=== PATIENT | male | born 1950 | race African-American/Black ===

== ENCOUNTER 2020-09-03 18:32 | Inpatient (IN) | payer MEDICARE, OTHER ==
[~2020-09-03 18:32] MED LIST: ALLOPURINOL300 MG PO; AZITHROMYCIN250 MG PO; CARDURA2 MG PO; CATAPRES0.1 MG PO; COLACE100 MG PO; COZAAR100 MG PO; FIBER500 MG PO; HCTZ25 MG PO; MAG-OXIDE 400M400 MG PO; NORVASC5 MG PO; PERCOCET 5-3251 EACH PO; POLY-IRON150 MG PO; SYNTHROID25 MCG PO; TOPROL XL100 MG PO; VITAMIN D3125 MC2 PO
[2020-09-03 19:34] LABS: BASOPHIL 0.3 % (0-2); EOSINOPHIL 0.5 % (0-7); HCT 39.6 % (42.0-52.0); HGB 12.5 g/dl (13.2-18.0); LYMPHOCYTE 19.8 % (15-48); MCH 28.7 pg (25.0-31.0); MCHC 31.6 g/dL (32.0-36.0); MCV 90.8 fL (78.0-100.0); MONOCYTE 5.1 % (0-12); MPV 10.9 fL (6.0-9.5); NRBC 0; PLT 187 K/uL (150-400); RBC 4.36 M/uL (4.70-6.00); RDW 14.2 % (11.5-14.0); WBC 6.5 K/uL (4.0-10.5)
[2020-09-03 19:36] LABS: BILIRUBIN 1+ mg/dL (NEGATIVE); BLOOD NEGATIVE Ery/uL (NEGATIVE); CLARITY CLEAR (CLEAR); COLOR YELLOW (YELLOW); GLUCOSE (U) NORMAL (NORMAL); LEUKOCYTES NEGATIVE Leu/uL (NEGATIVE); NITRITE NEGATIVE (NEGATIVE); PROTEIN 2+ mg/dL (NEGATIVE); SPECIFIC GRAVITY >=1.030 (1.001-1.030); UROBILINOGEN 0.2 mg/dL (0.2-1.0)
[2020-09-03 19:42] LABS: BACTERIA TRACE; MUCOUS LARGE; URINARY RBC RARE; URINARY WBC RARE
[2020-09-03 19:43] LABS: AMORPHOUS URATES CRYSTALS MODERATE
[2020-09-03 19:50] LABS: INR 1.2 (0.9-1.2); PROTHROMBIN TIME 14.4 SECONDS (11.4-13.6); PTT 31.2 SECONDS (22.2-34.7)
[2020-09-03 19:52] LABS: ALBUMIN 3.3 g/dL (3.4-5.0); BILIRUBIN - TOTAL 0.8 mg/dL (0.2-1.0); BUN/CREAT RATIO (CALC) 17.7 RATIO; CREATININE 0.96 mg/dL (0.67-1.17); GLOBULIN (CALCULATION) 3.4 g/dL; POTASSIUM 3.6 mmol/L (3.5-5.1); TOTAL PROTEIN 6.7 g/dL (6.4-8.2)
[2020-09-03] MEDS ORDERED: CARDURA2 MG PO (23:07)
[2020-09-03] MEDS ORDERED: SYNTHROID25 MCG PO (23:08)
[2020-09-03] MEDS ORDERED: CLONIDINE HCL0.2 MG PO (23:08)
[2020-09-03] MEDS ORDERED: NORVASC5 MG PO (23:09)
[2020-09-03] MEDS ORDERED: COZAAR100 MG PO (23:09)
[2020-09-03] MEDS ORDERED: HCTZ25 MG PO (23:10)
[2020-09-03] MEDS ORDERED: ALLOPURINOL300 MG PO (23:10)
[2020-09-03] MEDS ORDERED: COLACE100 MG PO (23:11)
[2020-09-03] MEDS ORDERED: PERCOCET 7.5/321 TAB PO (23:11)
[2020-09-04 00:42] LABS: LACTIC ACID 2.3 mmol/L (0.4-1.9)
[2020-09-04 00:42] LABS: HCT 34.5 % (42.0-52.0); HGB 11.1 g/dL (13.2-18.0)
[2020-09-04 06:23] LABS: HCT 35.9 % (42.0-52.0); HGB 11.9 g/dL (13.2-18.0)
[2020-09-05 04:02] LABS: BASOPHIL 0.4 % (0-2); EOSINOPHIL 2.9 % (0-7); HGB 9.3 g/dl (13.2-18.0); LYMPHOCYTE 24.6 % (15-48); MCH 29.2 pg (25.0-31.0); MCHC 32.1 g/dL (32.0-36.0); MCV 91.2 fL (78.0-100.0); MONOCYTE 9.4 % (0-12); MPV 10.6 fL (6.0-9.5); NEUTROPHIL 62.4 % (41-80); NRBC 0; PLT 167 K/uL (150-400); RBC 3.18 M/uL (4.70-6.00); RDW 14.2 % (11.5-14.0); WBC 6.8 K/uL (4.0-10.5)
[2020-09-05 04:22] LABS: BUN/CREAT RATIO (CALC) 10.2 RATIO; CREATININE 0.98 mg/dL (0.67-1.17); POTASSIUM 3.6 mmol/L (3.5-5.1)
[2020-09-05 14:17] LABS: HCT 33.8 % (42.0-52.0); HGB 10.7 g/dl (13.2-18.0); MCH 29.2 pg (25.0-31.0); MCHC 31.7 g/dL (32.0-36.0); MCV 92.3 fL (78.0-100.0); MPV 10.5 fL (6.0-9.5); RBC 3.66 M/uL (4.70-6.00); RDW 14.4 % (11.5-14.0); WBC 6.9 K/uL (4.0-10.5)
[2020-09-06 06:47] LABS: BASOPHIL 0.4 % (0-2); EOSINOPHIL 2.9 % (0-7); HCT 31.9 % (42.0-52.0); HGB 10.4 g/dl (13.2-18.0); LYMPHOCYTE 27.5 % (15-48); MCH 29.2 pg (25.0-31.0); MCHC 32.6 g/dL (32.0-36.0); MCV 89.6 fL (78.0-100.0); MONOCYTE 7.9 % (0-12); MPV 10.7 fL (6.0-9.5); NEUTROPHIL 61.2 % (41-80); NRBC 0; PLT 192 K/uL (150-400); RBC 3.56 M/uL (4.70-6.00); RDW 14.1 % (11.5-14.0); WBC 7.8 K/uL (4.0-10.5)
== END 2020-09-06 12:42 | disposition home or self-care (01) | DRG 378 ==
LOC: FER 18:32 → FTCU 20:56
PROVIDERS: Allergy & Immunology Allergy; Hospitalist; Physician Assistant; Student in an Organized Health Care Education/Training Program; ADMIT Internal Medicine
DX: K57.31 Diverticulosis of large intestine without perforation or abscess with bleeding (principal); I48.20 Chronic atrial fibrillation, unspecified; I10 Essential (primary) hypertension; E03.9 Hypothyroidism, unspecified; Z20.822 Contact with and (suspected) exposure to COVID-19; M10.9 Gout, unspecified; M19.90 Unspecified osteoarthritis, unspecified site; Z98.890 Other specified postprocedural states; Z87.891 Personal history of nicotine dependence; Z85.53 Personal history of malignant neoplasm of renal pelvis; Z85.51 Personal history of malignant neoplasm of bladder
CPT/HCPCS: 36415; 80048; 80053; 81001; 83605; 83690; 85014; 85018; 85025; 85610; 85730; 86850; 86900; 86901; 93005; 94010; C9113; J0360; J2270; J2353; J2354; J2405; J2543; J7030; U0002

== ENCOUNTER → 2020-11-29 | Day surgery (SDC) | payer MEDICARE, OTHER ==
[~2020-11-29] MED LIST changes: +CLONIDINE HCL0.2 MG PO; +FOLIC ACID1 M1 PO; +OMEPRAZOLE40 MG PO; +OXYCODONE-ACET1 EACH PO; +PERCOCET 7.5/321 TAB PO
== END | disposition home or self-care (01) ==
LOC: FAS 07:11
DX: K29.60 Other gastritis without bleeding (principal); K44.9 Diaphragmatic hernia without obstruction or gangrene; K57.30 Diverticulosis of large intestine without perforation or abscess without bleeding; E11.9 Type 2 diabetes mellitus without complications; I10 Essential (primary) hypertension; I48.0 Paroxysmal atrial fibrillation; M19.90 Unspecified osteoarthritis, unspecified site; D64.9 Anemia, unspecified; Z98.890 Other specified postprocedural states; Z20.822 Contact with and (suspected) exposure to COVID-19; Z80.0 Family history of malignant neoplasm of digestive organs; Z87.891 Personal history of nicotine dependence
CPT/HCPCS: 88305; 93005; J2250; J2704; J7120

== ENCOUNTER 2021-02-17 08:46 | Inpatient (IN) | payer MEDICARE, OTHER ==
[~2021-02-17] VITALS: Ht 177.8 cm; Wt 99.6 kg
[~2021-02-17 08:46] MED LIST changes: -FOLIC ACID1 M1 PO; -OMEPRAZOLE40 MG PO; -OXYCODONE-ACET1 EACH PO
[2021-02-17 09:21] LABS: BASOPHIL 0.1 % (0-2); EOSINOPHIL 0.6 % (0-7); HCT 38.9 % (42.0-52.0); HGB 12.5 g/dl (13.2-18.0); LYMPHOCYTE 6.9 % (15-48); MCH 28.1 pg (25.0-31.0); MCHC 32.1 g/dL (32.0-36.0); MCV 87.4 fL (78.0-100.0); MONOCYTE 1.5 % (0-12); MPV 10.8 fL (6.0-9.5); NEUTROPHIL 90.7 % (41-80); NRBC 0; PLT 182 K/uL (150-400); RBC 4.45 M/uL (4.70-6.00); RDW 14.7 % (11.5-14.0)
[2021-02-17 09:24] LABS: WBC 8.7 K/uL (4.0-10.5)
[2021-02-17 09:42] LABS: ALBUMIN 3.6 g/dL (3.4-5.0); BILIRUBIN - TOTAL 1.1 mg/dL (0.2-1.0); BUN/CREAT RATIO (CALC) 17.2 RATIO; CREATININE 1.22 mg/dL (0.67-1.17); GLOBULIN (CALCULATION) 3.3 g/dL; POTASSIUM 3.5 mmol/L (3.5-5.1); TOTAL PROTEIN 6.9 g/dL (6.4-8.2)
[2021-02-17 09:46] LABS: INR 1.16 (0.9-1.2); PROTHROMBIN TIME 14.2 SECONDS (11.8-13.4)
[2021-02-17 10:36] LABS: CORONAVIRUS 2019 SARS-COV-2 NEGATIVE (NEGATIVE); INFLUENZA A NAA NEGATIVE (NEGATIVE)
[2021-02-17 10:45] LABS: BILIRUBIN NEGATIVE (NEGATIVE); BLOOD TRACE-INTACT Ery/uL (NEGATIVE); CLARITY CLEAR (CLEAR); COLOR YELLOW (YELLOW); GLUCOSE (U) NORMAL (NORMAL); LEUKOCYTES NEGATIVE Leu/uL (NEGATIVE); NITRITE NEGATIVE (NEGATIVE); PROTEIN 1+ mg/dL (NEGATIVE); SPECIFIC GRAVITY 1.015 (1.001-1.030)
[2021-02-17 10:59] LABS: URINARY WBC RARE
[2021-02-17 11:00] LABS: SQUAMOUS EPITHELIAL CELLS RARE; TRANSITIONAL EPITHELIAL CELLS RARE
[2021-02-17] MEDS ORDERED: OMEPRAZOLE40 MG PO (14:17)
[2021-02-17] MEDS ORDERED: OXYCODONE-ACET1 EACH PO (14:20)
[2021-02-17] MEDS ORDERED: FOLIC ACID1 M1 PO (14:23)
--- NOTE | 2021-02-17 23:32 | NUR ---
2299 patient complains of chilling, temp 100.3 rectal, Tylenol 650mg po given. He is shaking and chilling, Briana Thakkar APRN notified and examined the patient, new orders rec'd.
[2021-02-17 23:56] LABS: MAGNESIUM 1.3 mg/dL (1.8-2.4); POTASSIUM 3.8 mmol/L (3.5-5.1)
--- NOTE | 2021-02-18 02:31 | NUR ---
0025 TRANSFERRED TO ICU VIA [facility]
[2021-02-18 04:16] LABS: BASOPHIL 0.2 % (0-2); EOSINOPHIL 0 % (0-7); HCT 39.6 % (42.0-52.0); HGB 12.9 g/dl (13.2-18.0); LYMPHOCYTE 1.6 % (15-48); MCH 28.5 pg (25.0-31.0); MCHC 32.6 g/dL (32.0-36.0); MCV 87.6 fL (78.0-100.0); MONOCYTE 6.1 % (0-12); MPV 10.4 fL (6.0-9.5); NEUTROPHIL 91.4 % (41-80); PLT 137 K/uL (150-400); RBC 4.52 M/uL (4.70-6.00); RDW 15.1 % (11.5-14.0)
[2021-02-18 04:20] LABS: WBC 16.9 K/uL (4.0-10.5)
[2021-02-18 04:33] LABS: ALBUMIN 3.2 g/dL (3.4-5.0); BILIRUBIN - TOTAL 2.3 mg/dL (0.2-1.0); BUN/CREAT RATIO (CALC) 17.6 RATIO; CREATININE 1.19 mg/dL (0.67-1.17); GLOBULIN (CALCULATION) 2.7 g/dL; MAGNESIUM 1.4 mg/dL (1.8-2.4); PHOSPHORUS 2.2 mg/dL (2.6-4.7); POTASSIUM 3.4 mmol/L (3.5-5.1); TOTAL PROTEIN 5.9 g/dL (6.4-8.2)
[2021-02-18 05:10] LABS: BAND 22 % (0-10); LYMPHOCYTE(M) 2 % (15-48); MONOCYTE(M) 2 % (0-12); NEUTROPHILS(M) 74 % (41-80); PLATELET ESTIMATE NORMAL; PLATELET MORPHOLOGY NORMAL; TOTAL CELL COUNT 100
--- NOTE | 2021-02-18 19:32 | NUR ---
REPORT GIVEN TO EMS, PT VSS. ALERT AND ORIENTED X4 AND UNDERSTANDING OF PLAN TO TRANSFER TO [facility] FOR EDDIE AND INFECTIOUS DISEASE CONSULT. PT HAS 2 PATENT IVS, FLUSHED AND WDL. UPDATED AND AWARE OF PLAN OF CARE.
== END 2021-02-18 19:21 | disposition other institution (70) | DRG 871 ==
LOC: FER 08:46 → FICU 12:36 → FMS 12:36 → FICU 02-18 00:16
PROVIDERS: Emergency Medicine; Nurse Practitioner; ADMIT Internal Medicine
DX: A41.50 Gram-negative sepsis, unspecified (principal); I21.A1 Myocardial infarction type 2; N17.9 Acute kidney failure, unspecified; E87.2 Acidosis; I48.20 Chronic atrial fibrillation, unspecified; A41.89 Other specified sepsis; R65.20 Severe sepsis without septic shock; K57.30 Diverticulosis of large intestine without perforation or abscess without bleeding; I10 Essential (primary) hypertension; Z20.822 Contact with and (suspected) exposure to COVID-19; E04.9 Nontoxic goiter, unspecified; I73.9 Peripheral vascular disease, unspecified; M10.9 Gout, unspecified; Z85.51 Personal history of malignant neoplasm of bladder; Z85.528 Personal history of other malignant neoplasm of kidney; Z90.5 Acquired absence of kidney; Z98.890 Other specified postprocedural states; Z79.899 Other long term (current) drug therapy; Z95.828 Presence of other vascular implants and grafts
CPT/HCPCS: 36415; 36600; 71045; 80053; 81001; 82607; 82803; 83605; 83690; 83735; 83880; 84100; 84132; 84484; 85025; 85610; 85730; 87040; 87077; 87186; 93005; J1650; J2185; J2270; J2405; J2543; J3370; J3475; J3480; J7030; J7050; Q9967; U0002